=== PATIENT | male | born 1960 | race Caucasian/White ===

== ENCOUNTER → 2018-08-08 | Outpatient (CLI) | payer OTHER | LOC: CAT 11:51 | DX: S02.2XXK Fracture of nasal bones, subsequent encounter for fracture with nonunion (principal); H04.339 Acute lacrimal canaliculitis of unspecified lacrimal passage; X58.XXXD Exposure to other specified factors, subsequent encounter; Y93.89 Activity, other specified; Y92.89 Other specified places as the place of occurrence of the external cause; Y99.8 Other external cause status ==